=== PATIENT | male | born 1950 | race Hispanic/Latino ===

== ENCOUNTER 2024-03-02 18:03 | Inpatient (IN) | payer OTHER ==
[~2024-03-02] VITALS: Ht 165.1 cm; Wt 83.6 kg
[2024-03-02 18:50] LABS: BASOPHILS # (AUTO) 0.03 K/uL (0.00-0.20); BASOPHILS % (AUTO) 0.2 % (0.0-5.0); EOSINOPHILS # (AUTO) 0.12 K/uL (0.00-0.70); EOSINOPHILS % (AUTO) 0.8 % (0.0-8.0); HEMATOCRIT 40.3 % (42-54); IMMATURE GRANULOCYTE ABSOLUTE 0.06 K/uL (0-1); LYMPHOCYTES # (AUTO) 1.3 K/uL (1.0-4.8); MEAN CORPUSCULAR HEMOGLOBIN 28.6 pg (27.0-33.0); MEAN CORPUSCULAR HGB CONC 32.8 g/dL (32.0-36.0); MEAN CORPUSCULAR VOLUME 87.4 fL (79-99); MONOCYTES % (AUTO) 6.6 % (3.0-13.0); NEUTROPHILS # (AUTO) 13.2 K/uL (1.8-7.7); PLATELET COUNT (AUTO) 413 K/uL (130-400); RED BLOOD CELL COUNT(AUTO) 4.61 MIL/uL (4.50-6.20); RED CELL DISTRIBUTION WIDTH 12.9 % (11.0-15.5); WHITE BLOOD COUNT (AUTO) 15.7 K/uL (4.8-10.8)
[2024-03-02 18:59] LABS: APPEARANCE,URINE CLEAR (CLEAR); BILIRUBIN,URINE NEGATIVE (NEGATIVE); COLOR,URINE YELLOW (YELLOW); GLUCOSE, URINE (UA) NEGATIVE (NEGATIVE); KETONES,URINE NEGATIVE (NEGATIVE); LEUKOCYTE ESTERASE ,URINE NEGATIVE Leu/uL (NEGATIVE); NITRATE,URINE NEGATIVE (NEGATIVE); OCCULT BLOOD,URINE SMALL (NEGATIVE); PH,URINE 5.5 (5.0-8.0); PROTEIN,URINE 50 mg/dL (NEGATIVE); UROBILINOGEN,URINE 0.2 mg/dL (0.2-1.0)
[2024-03-02 19:00] LABS: CREATININE 1.5 mg/dL (0.5-1.3); POTASSIUM 4.3 mmol/L (3.5-5.1)
[2024-03-02 19:03] LABS: ADD UA MICROSCOPIC YES; BACTERIA,URINE RARE /HPF (None Seen); MUCUS,URINE RARE LPF (None Seen); RBC,URINE 0-1 /HPF (0-1)
[2024-03-02 19:21] LABS: PLATELET MORPHOLOGY PLT CLUMPS PRESENT
[2024-03-02] MEDS ORDERED: IOHEXOL-350 75 ML VIAL IV ONE (19:57)
[2024-03-02] MEDS: ondanSETRON 4MG INJ IVP STA (20:06)
[2024-03-02] MEDS: 0.9%NACL 1000ML 1,000 ML IV STA (20:06)
[2024-03-02] MEDS: morPHINE 2 MG SYG IVP STA (20:06)
[2024-03-02] MEDS: ZOSYN 3.375GM +NS 50ML IV STA (22:04)
[2024-03-02] MEDS: metRONIDazole 500MG/100ML BAG 100 ML IVPB STA (22:54)
[2024-03-02] MEDS: DEXTROSE 5 %-0.45 % NACL 1,000 ML IV SCH (22:55)
[2024-03-02] MEDS ORDERED: acetaMINOPHEN 325 MG TAB PO PRN (23:00)
[2024-03-03] VITALS (8 sets, daily range): BP systolic 117–135; BP diastolic 63–78; PULSE 68–92; RESP 18–20; TEMP 98.5–99.5; O2SAT 96–100
[2024-03-03] MEDS: hydroMORPHone 0.5 MG SYG (0.5MG/0.5ML) IVP PRN (02:38)
[2024-03-03] MEDS ORDERED: 0.9%NACL 50ML IV SCH (05:00)
[2024-03-03 05:55] LABS: BASOPHILS # (AUTO) 0.06 K/uL (0.00-0.20); BASOPHILS % (AUTO) 0.3 % (0.0-5.0); EOSINOPHILS # (AUTO) 0.14 K/uL (0.00-0.70); EOSINOPHILS % (AUTO) 0.8 % (0.0-8.0); HEMATOCRIT 34.7 % (42-54); IMMATURE GRANULOCYTE ABSOLUTE 0.13 K/uL (0-1); LYMPHOCYTES # (AUTO) 1.6 K/uL (1.0-4.8); LYMPHOCYTES % (AUTO) 8.8 % (21.0-51.0); MEAN CORPUSCULAR HEMOGLOBIN 28.1 pg (27.0-33.0); MEAN CORPUSCULAR HGB CONC 32.3 g/dL (32.0-36.0); MEAN CORPUSCULAR VOLUME 87.2 fL (79-99); MONOCYTES # (AUTO) 1.4 K/uL (0.1-1.0); MONOCYTES % (AUTO) 7.3 % (3.0-13.0); NEUTROPHILS # (AUTO) 15.1 K/uL (1.8-7.7); NEUTROPHILS % (AUTO) 82.1 % (40.0-77.0); PLATELET COUNT (AUTO) 385 K/uL (130-400); RED BLOOD CELL COUNT(AUTO) 3.98 MIL/uL (4.50-6.20); RED CELL DISTRIBUTION WIDTH 12.8 % (11.0-15.5); WHITE BLOOD COUNT (AUTO) 18.5 K/uL (4.8-10.8)
[2024-03-03 06:18] LABS: ALBUMIN 2.5 g/dL (3.5-5.0); BILIRUBIN,TOTAL 0.4 mg/dL (0.2-1.0); CREATININE 1.3 mg/dL (0.5-1.3); POTASSIUM 3.8 mmol/L (3.5-5.1); TOTAL PROTEIN, SERUM 6.8 g/dL (6.0-8.3)
[2024-03-03] MEDS: METRONIDAZOLE 250 MG/50 ML IV SCH (06:40)
[2024-03-03] MEDS: ZOSYN 3.375GM +NS 50ML IVPB SCH (06:47)
[2024-03-03] MEDS: ENOXAPARIN SODIUM 30 MG/0.3 ML SQ SCH (10:57)
[2024-03-04] VITALS (8 sets, daily range): BP systolic 114–130; BP diastolic 60–71; PULSE 70–89; RESP 18; TEMP 97.7–98.9; O2SAT 96–98
[2024-03-04 05:52] LABS: HEMATOCRIT 34.3 % (42-54); MEAN CORPUSCULAR HEMOGLOBIN 28.4 pg (27.0-33.0); MEAN CORPUSCULAR HGB CONC 32.1 g/dL (32.0-36.0); MEAN CORPUSCULAR VOLUME 88.4 fL (79-99); RED BLOOD CELL COUNT(AUTO) 3.88 MIL/uL (4.50-6.20); WHITE BLOOD COUNT (AUTO) 10.8 K/uL (4.8-10.8)
[2024-03-04 06:10] LABS: ALBUMIN 2.4 g/dL (3.5-5.0); BILIRUBIN,TOTAL 0.4 mg/dL (0.2-1.0); CREATININE 1.3 mg/dL (0.5-1.3); POTASSIUM 3.4 mmol/L (3.5-5.1); TOTAL PROTEIN, SERUM 6.8 g/dL (6.0-8.3)
[2024-03-04] MEDS ORDERED: PoTASSium chl 10% ELIXIR 20MEQ 20 MEQ/15 ML UDCUP PO PRN (16:30)
[2024-03-04] MEDS ORDERED: PoTASSium chloRIDE 20MEQ/100ML 100 ML IV PRN (16:30)
[2024-03-04] MEDS: PoTASSium chloRIDE 20MEQ ER 20 MEQ ERTAB PO PRN (17:50)
[2024-03-05] VITALS (7 sets, daily range): BP systolic 121–135; BP diastolic 71–82; PULSE 74–81; RESP 18–20; TEMP 98.2–99.1; O2SAT 98
[2024-03-05] MEDS: DIPHENOXYLATE HCL/ATROPINE 2.5/0.025 MG TAB PO SCH (13:23)
[2024-03-05] MEDS: HYDROcodone/APAP 5/325 1 TAB TABLET PO PRN (17:34)
[2024-03-06] VITALS (7 sets, daily range): BP systolic 110–130; BP diastolic 50–72; PULSE 70–89; RESP 16–18; TEMP 97.2–98.6; O2SAT 98
[2024-03-06 07:04] LABS: BASOPHILS # (AUTO) 0.04 K/uL (0.00-0.20); BASOPHILS % (AUTO) 0.4 % (0.0-5.0); EOSINOPHILS # (AUTO) 0.37 K/uL (0.00-0.70); EOSINOPHILS % (AUTO) 4.1 % (0.0-8.0); IMMATURE GRANULOCYTE ABSOLUTE 0.03 K/uL (0-1); LYMPHOCYTES # (AUTO) 1.4 K/uL (1.0-4.8); MEAN CORPUSCULAR HEMOGLOBIN 28.4 pg (27.0-33.0); MEAN CORPUSCULAR HGB CONC 32.2 g/dL (32.0-36.0); MEAN CORPUSCULAR VOLUME 88.2 fL (79-99); MONOCYTES # (AUTO) 0.6 K/uL (0.1-1.0); MONOCYTES % (AUTO) 6.8 % (3.0-13.0); NEUTROPHILS # (AUTO) 6.6 K/uL (1.8-7.7); NEUTROPHILS % (AUTO) 73.4 % (40.0-77.0); PLATELET COUNT (AUTO) 437 K/uL (130-400); RED BLOOD CELL COUNT(AUTO) 4.08 MIL/uL (4.50-6.20); RED CELL DISTRIBUTION WIDTH 12.8 % (11.0-15.5)
[2024-03-06 07:19] LABS: ALBUMIN 2.5 g/dL (3.5-5.0); BILIRUBIN,TOTAL 0.2 mg/dL (0.2-1.0); CREATININE 1.2 mg/dL (0.5-1.3); POTASSIUM 3.6 mmol/L (3.5-5.1); TOTAL PROTEIN, SERUM 7.2 g/dL (6.0-8.3)
[2024-03-06] MEDS: LACTATED RINGERS 1000ML IV SCH (07:54)
[2024-03-07] VITALS (7 sets, daily range): BP systolic 119–147; BP diastolic 68–87; PULSE 63–84; RESP 17–20; TEMP 97.6–98.8; O2SAT 99
[2024-03-07] MEDS: AMOX/CLAV 875/125MG TAB PO SCH (09:31)
[2024-03-08] VITALS: BP 135/76; PULSE 64; RESP 17; TEMP 98.8
[2024-03-08 04:00] VITALS: BP 133/77; PULSE 77; RESP 17; TEMP 98.5
[2024-03-08 06:09] LABS: BASOPHILS # (AUTO) 0.04 K/uL (0.00-0.20); BASOPHILS % (AUTO) 0.3 % (0.0-5.0); EOSINOPHILS # (AUTO) 0.37 K/uL (0.00-0.70); HEMATOCRIT 33.2 % (42-54); IMMATURE GRANULOCYTE ABSOLUTE 0.06 K/uL (0-1); LYMPHOCYTES # (AUTO) 1.7 K/uL (1.0-4.8); LYMPHOCYTES % (AUTO) 13.5 % (21.0-51.0); MEAN CORPUSCULAR HEMOGLOBIN 27.7 pg (27.0-33.0); MEAN CORPUSCULAR HGB CONC 31.9 g/dL (32.0-36.0); MEAN CORPUSCULAR VOLUME 86.7 fL (79-99); MONOCYTES % (AUTO) 8.2 % (3.0-13.0); NEUTROPHILS # (AUTO) 9.3 K/uL (1.8-7.7); NEUTROPHILS % (AUTO) 74.5 % (40.0-77.0); PLATELET COUNT (AUTO) 389 K/uL (130-400); RED BLOOD CELL COUNT(AUTO) 3.83 MIL/uL (4.50-6.20); RED CELL DISTRIBUTION WIDTH 12.8 % (11.0-15.5); WHITE BLOOD COUNT (AUTO) 12.5 K/uL (4.8-10.8)
[2024-03-08 06:27] LABS: ALBUMIN 2.4 g/dL (3.5-5.0); BILIRUBIN,TOTAL 0.1 mg/dL (0.2-1.0); CREATININE 1.1 mg/dL (0.5-1.3); POTASSIUM 3.7 mmol/L (3.5-5.1); TOTAL PROTEIN, SERUM 6.5 g/dL (6.0-8.3)
[2024-03-08 07:57] VITALS: BP 141/69; PULSE 76; RESP 18; TEMP 98.1
[2024-03-08 08:00] VITALS: O2SAT 99
[2024-03-08 11:24] VITALS: BP 122/63; PULSE 68; RESP 18; TEMP 98.3
[2024-03-08 16:05] VITALS: BP 155/59; PULSE 79; RESP 18; TEMP 98.1
== END 2024-03-08 17:00 | disposition home or self-care (01) | DRG 871 ==
LOC: EDH 18:03 → EDHIP 22:34 → 3AH 03-03 02:15
PROVIDERS: ADMIT Internal Medicine; ATTEND Internal Medicine
DX: A41.9 Sepsis, unspecified organism (principal); K65.1 Peritoneal abscess; N17.9 Acute kidney failure, unspecified; E87.1 Hypo-osmolality and hyponatremia; E86.0 Dehydration; E87.6 Hypokalemia; D64.9 Anemia, unspecified; I10 Essential (primary) hypertension; F32.A Depression, unspecified; F41.9 Anxiety disorder, unspecified; K76.0 Fatty (change of) liver, not elsewhere classified; Z90.49 Acquired absence of other specified parts of digestive tract; Z93.2 Ileostomy status; Z93.3 Colostomy status
CPT/HCPCS: 36415; 74176; 74177; 80048; 80053; 81001; 83605; 84132; 84145; 85025; 85027; 96374; 96375; G0378; J1170; J1650; J2270; J2405; J2543; J3490; J7030; J7042; Q9967

== ENCOUNTER 2024-05-12 11:00 | Inpatient (IN) | payer OTHER ==
[~2024-05-12] VITALS: Ht 165.1 cm; Wt 85.1 kg
[2024-05-12 10:57] LABS: BASOPHILS # (AUTO) 0.03 K/uL (0.00-0.20); BASOPHILS % (AUTO) 0.3 % (0.0-5.0); EOSINOPHILS # (AUTO) 0.26 K/uL (0.00-0.70); EOSINOPHILS % (AUTO) 2.4 % (0.0-8.0); HEMATOCRIT 42.4 % (42-54); IMMATURE GRANULOCYTE ABSOLUTE 0.04 K/uL (0-1); LYMPHOCYTES # (AUTO) 1.7 K/uL (1.0-4.8); LYMPHOCYTES % (AUTO) 16.2 % (21.0-51.0); MEAN CORPUSCULAR HEMOGLOBIN 27.8 pg (27.0-33.0); MEAN CORPUSCULAR VOLUME 84.1 fL (79-99); MONOCYTES # (AUTO) 0.8 K/uL (0.1-1.0); MONOCYTES % (AUTO) 7.1 % (3.0-13.0); NEUTROPHILS # (AUTO) 7.8 K/uL (1.8-7.7); NEUTROPHILS % (AUTO) 73.6 % (40.0-77.0); PLATELET COUNT (AUTO) 327 K/uL (130-400); RED BLOOD CELL COUNT(AUTO) 5.04 MIL/uL (4.50-6.20); RED CELL DISTRIBUTION WIDTH 13.7 % (11.0-15.5); WHITE BLOOD COUNT (AUTO) 10.7 K/uL (4.8-10.8)
[2024-05-12 11:12] VITALS: BP 147/78; PULSE 80; RESP 18; TEMP 97.5
[2024-05-12 11:22] LABS: ALBUMIN 3.4 g/dL (3.5-5.0); BILIRUBIN,TOTAL 0.5 mg/dL (0.2-1.0); CREATININE 1.4 mg/dL (0.5-1.3); POTASSIUM 4.4 mmol/L (3.5-5.1); TOTAL PROTEIN, SERUM 7.7 g/dL (6.0-8.3)
[2024-05-12 11:42] LABS: INR 1.04 (0.85-1.15); PROTHROMBIN TIME 11.2 SEC (9.6-11.6)
[2024-05-12 11:43] LABS: PARTIAL THROMBOPLASTIN TIME 27.8 SEC (26.3-35.5)
[2024-05-12] MEDS ORDERED: TOBR5DRO44 OP (11:55)
[2024-05-12] MEDS ORDERED: CYCL30DR OP (11:55)
[2024-05-12] MEDS ORDERED: LOPE2CAP PO (11:55)
[2024-05-12] MEDS ORDERED: HYDR-3421 PO (11:55)
--- NOTE | 2024-05-12 21:43 | EKG ---
[facility] Test Date: 2024-05-12 Test Time: 11:36:19 Pat Name: RADHA CALDWELL Department: Patient ID: 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
[2024-05-16] VITALS (29 sets, daily range): BP systolic 129–168; BP diastolic 72–86; PULSE 58–89; RESP 15–20; TEMP 96.3–98; O2SAT 98
[2024-05-16] MEDS: MEROPENEM 1 GM VIAL ONE (06:26)
[2024-05-16] MEDS: LACTATED RINGERS 1000ML 1,000 ML IV ONE (06:26)
[2024-05-16] MEDS ORDERED: GLYCOPYRROLATE 0.2 MG/ML 5 ML VIAL ONE (07:02)
[2024-05-16] MEDS ORDERED: SUCCINYLCHOLINE CHLORIDE 20 MG/ML 10 ML VIAL ONE (07:02)
[2024-05-16] MEDS ORDERED: ondanSETRON 4MG INJ ONE (07:02)
[2024-05-16] MEDS ORDERED: proPOFol 10 MG/ML 20ML VIAL IV ONE (07:02)
[2024-05-16] MEDS ORDERED: rocuRONium bROMide 10MG/1ML 5ML VL ONE ×2 (07:02→09:20)
[2024-05-16] MEDS ORDERED: MIDAZOLAM HCL 1 MG/ML 2ML VIAL ONE (07:02)
[2024-05-16] MEDS ORDERED: NEOSTIGMINE METHYLSULFATE 1MG/ML IV ONE (07:02)
[2024-05-16] MEDS ORDERED: FENTanyl CITRate PF 50 MCG/1 ML 2ML VIAL ONE ×2 (07:03→08:52)
[2024-05-16] MEDS ORDERED: LIDOCAINE PF 100MG/5ML (2%) SYRINGE 5ML ONE (07:03)
[2024-05-16] MEDS: acetaMINOPHEN 100 ML ONE (07:29)
[2024-05-16] MEDS ORDERED: phenylEPHRINE HCL 10 MG/ML 1ML VIAL IV ONE ×2 (07:32→07:35)
[2024-05-16] MEDS ORDERED: dexaMETHasone SOD PHOSPHATE 10MG/ML 1ML VIAL ONE (08:10)
[2024-05-16] MEDS: EPINEPHrine PF 1MG (1:1,000) 1 MG/ML AMP ONE (08:21)
[2024-05-16] MEDS: LIDOCAINE HCL 1% 10 ML VIAL ONE (08:21)
[2024-05-16] MEDS: LIDOCAINE HCL 1% 20 ML VIAL ONE (08:21)
[2024-05-16] MEDS: BUPIvacaine/PF 0.5% 30ML VIAL ONE (08:21)
[2024-05-16] MEDS: acetaMINOPHEN 325 MG TAB PO SCH (11:00)
[2024-05-16] MEDS ORDERED: INSULIN humuLIN R 100 UNIT/ML 3ML SQ PRN (11:00)
[2024-05-16] MEDS: MEPERIDINE-PF 25 MG/ML SYG ONE ×2 (11:09→11:44)
[2024-05-16] MEDS: FENTanyl CITRate PF 50 MCG/1 ML 2ML VIAL ONE (11:15)
[2024-05-16] MEDS: GABApentin 100 MG CAPSULE PO SCH (14:00)
--- NOTE | 2024-05-16 14:40 | OP ---
Operative Note: DATE OF PROCEDURE: 05/16/24 SURGEON: ML LEE MD EXPLORATION ENGINEER: None ANESTHESIA: General ANESTHESIOLOGIST/CUSTOMS VERIFIER: CUSTOMS VERIFIER PREOPERATIVE DIAGNOSIS: Ileostomy status POSTOPERATIVE DIAGNOSIS: Same PROCEDURE: Open Ileostomy closure with small bowel resection Extensive lysis of adhesions lasting greater than 1 hour, extended procedural service, not typical for this type of case ESTIMATED BLOOD LOSS: Minimal INDICATIONS: Mr. Holden is a very pleasant 74 year old male with a complicated surgical history with multiple prior open surgeries with subsequent need for Redo low anterior resection and now presents for ileostomy closure. complications, alternatives, risk and benefits include but not limited to infection, bleeding, injury to surrounding structures such as bowel, blood vessels, nerves and other organs, anastomotic leak, sepsis, recurrence of disease and the need for additional procedures. He voiced understanding and wished to proceed. All of his questions were answered to his satisfaction. DESCRIPTION OF PROCEDURE: After informed consent was obtained, the patient was taken to the operating room and laid in the supine position. Once GETA was achieved, the abdomen was prepped and draped in the usual sterile fashion. A time out was performed to confirm correct patient and procedure. Next local anesthetic was injected into the peristomal skin. Next the ileostomy site was incised leaving a small rim of skin. Dissection was carried down to release the small bowel from the surrounding tissue and fascia. We then took great care to separate the small bowel from the surrounding fascia however there was severe intra-abdominal adhesions along this entire midline down into the pelvis. We extended the circular incision for better visualization however there was severe intr- abdominal adhesions without normal planes. The omentum was firmly adherent to the abdominal wall and extremely friable and bled easily. There were several loops of small bowel in the midline and extending down into the pelvis, this is was inhibited the distal bowel from reaching above skin level. We placed a wound protector into the circular incision and gained pneumoperitoneum. A laparoscopic camera was placed into the abdomen and inspected. There were severe adhesions in the entire abdomen down into the pelvis. Given the severity it was difficult to determine adhesions from small bowel and thus it was decided to make a midline incision to complete the surgery. A midline incision was made and the abdomen was entered carefully. We then spent over an hour taking down adhesions in order to restore and identify anatomy. Once the distal small bowel was identified and carefully freed we then proceeded with the small bowel resection.We chose two healthy segments of small bowel and performed a small bowel resection of the small bowel between these points. The mesentery was clamped and tied for hemostasis. Next using a blue load FATMATA stapler the proximal and distal small bowel were transected and the small bowel sent as specimen. Next, an allis clamp was placed onto the edge of the staple line, this was cut off and the stapler placed into the small bowel. A performed a side to side stapled small bowel anastomosis in the standard fashion. Prior to closing the common enterotomy hemostasis of the interior staple line was checked for and obtained. Next allis clamps were placed onto the common enterotomy which was closed with a TA 60 stapler. Next the staple line was oversewn. A crotch stitch was placed. Hemostasis was checked for and obtained. Next the small bowel was placed back into the abdomen. We checked the surrounding small bowel and there were no injuries identified. We then closed the fascia of the midline incision and ileostomy sire with 1-0 PDS sutures. The wound was irrigated with betadine solution. hemostasis of the subcutaneous tissue was obtained. The midline incision was closed with monocryl sutures and dermabond placed as a sterile dressing. Next the takedown site was closed using 2-0 Monocryl in a pursestring manner. Iodoform packing was placed into the wound and a sterile gauze dressing was placed. The patient tolerated the procedure well and was taken to the recovery room in stable condition. I discussed the above in detail with the patients family member at completion of the case. Complications: none Blood loss: minimal Counts reported as correct x2 by nursing staff. ML LEE MD May 16, 2024 14:40
[2024-05-16] MEDS: LACTATED RINGERS 1000ML 1,000 ML IV SCH (17:11)
[2024-05-16] MEDS: hydroMORPHone 0.5 MG SYG (0.5MG/0.5ML) IVP PRN (17:16)
--- NOTE | 2024-05-16 21:32 | NUR ---
Pain Patient verbalized pain score of 7/10 to abdomen. Dilaudid 0.5mg give IV push at this time. Advised primary nurse Phyllis HURST to follow up on pain assessment. Verbalized understanding.
[2024-05-17] VITALS (8 sets, daily range): BP systolic 130–152; BP diastolic 72–88; PULSE 62–81; RESP 18–19; TEMP 97.9–98.7; O2SAT 96–98
[2024-05-17] MEDS: OXYcodONE HCL 5 MG TAB PO PRN (01:44)
[2024-05-17 04:50] LABS: BASOPHILS # (AUTO) 0.02 K/uL (0.00-0.20); BASOPHILS % (AUTO) 0.1 % (0.0-5.0); HEMATOCRIT 35.6 % (42-54); IMMATURE GRANULOCYTE ABSOLUTE 0.07 K/uL (0-1); LYMPHOCYTES # (AUTO) 1.4 K/uL (1.0-4.8); LYMPHOCYTES % (AUTO) 8.8 % (21.0-51.0); MEAN CORPUSCULAR HEMOGLOBIN 27.3 pg (27.0-33.0); MEAN CORPUSCULAR HGB CONC 32.6 g/dL (32.0-36.0); MEAN CORPUSCULAR VOLUME 83.8 fL (79-99); MONOCYTES # (AUTO) 1.3 K/uL (0.1-1.0); MONOCYTES % (AUTO) 8.2 % (3.0-13.0); NEUTROPHILS # (AUTO) 12.8 K/uL (1.8-7.7); NEUTROPHILS % (AUTO) 82.4 % (40.0-77.0); PLATELET COUNT (AUTO) 294 K/uL (130-400); RED BLOOD CELL COUNT(AUTO) 4.25 MIL/uL (4.50-6.20); RED CELL DISTRIBUTION WIDTH 13.6 % (11.0-15.5); WHITE BLOOD COUNT (AUTO) 15.5 K/uL (4.8-10.8)
[2024-05-17 05:11] LABS: CREATININE 1.1 mg/dL (0.5-1.3); POTASSIUM 4.5 mmol/L (3.5-5.1)
--- NOTE | 2024-05-17 08:11 | PN ---
COLORECTAL PROGRESS NOTE Date of Visit: May 17, 2024 Time of Visit: 08:06 Events / Notes: [74 YO male with ileostomy status who underwent an open ileostomy closure with small bowel resection and extensive lysis of adhesions. He reports feeling well this am. He has tolerated clear liquids with no n/v. BBS are clear. Abd is soft and not distended with active BS. Midline incision d/i peeled potato inspector with dermabond. Sanford cath draining clear yellow urine. He has ambulated without difficulties. Plan to remove sanford cath and advance diet. Encouraged ambulation and I/S exercises. He agrees. ] Review of Systems: CONSTITUTIONAL: No malaise or change in sensation of wellbeing. ENMT: No rhinorrhea, otorrhea, sinus pain, ear ache. CARDIOVASCULAR: No angina, palpitations, orthopnea or paroxysmal dyspnea. RESPIRATORY: No SOB. GASTROINTESTINAL: No abdominal pain, nausea, vomiting, diarrhea, hematemesis, melena or change in the patient's habitual bowel movements consistency/number. GENITOURINARY: No dysuria, hematuria or change in bladder continence. MUSCULOSKELETAL: No new muscle pain or decrease in muscular strength. No new joint swelling, redness or tenderness. SKIN: No new rash. Physical Exam: GEN: Awake, alert, oriented in person, time and place, and in no acute distress. HEENT: No rhinorrhea. Oral pharyngeal mucosa is pink, moist and within normal limits. Neck is supple CHEST: Inspection, palpation of the chest were unremarkable. Lung auscultation revealed normal breath sounds bilaterally. CARDIAC: Heart sounds are regular. ABD: Soft, non-tender and not distended. Midline incision D&I peeled potato inspector with dermab ond. Stoma site incision dressing dry. No peritoneal signs on palpation. No organomegaly. Normal bowel sounds. EXT: No cyanosis or clubbing. No edema. Homans negative SKIN: Intact. No rashes. JOINTS: No evidence of synovitis or acute arthritis. NEURO: Alert and oriented to name, place and person. No focal motor deficits. Normal speech. Gait not assessed. Strength is normal. Vital Signs (last 8hr) Date Time Temp Pulse Resp B/P (MAP) Pulse Ox O2 Delivery O2 Flow Rate FiO2 05/17/24 04:13 98.2 81 18 142/80 98 Room Air 05/17/24 00:15 98.1 79 18 139/88 97 Room Air Laboratory: [ ] Laboratory: Test 05/17/24 04:20 Range/Units White Blood Count 15.5 H 4.8-10.8 K/uL Red Blood Count 4.25 L 4.50-6.20 MIL/uL Hemoglobin 11.6 L 14.0-18.0 g/dL Hematocrit 35.6 L 42-54 % Mean Corpuscular Volume 83.8 79-99 fL Mean Corpuscular Hemoglobin 27.3 27.0-33.0 pg Mean Corpuscular Hemoglobin Concent 32.6 32.0-36.0 g/dL Red Cell Distribution Width 13.6 11.0-15.5 % Platelet Count 294 130-400 K/uL Mean Platelet Volume 9.1 7.5-10.5 fL Immature Granulocyte % (Auto) 0.5 0-1 % Neutrophils (%) (Auto) 82.4 H 40.0-77.0 % Lymphocytes (%) (Auto) 8.8 L 21.0-51.0 % Monocytes (%) (Auto) 8.2 3.0-13.0 % Eosinophils (%) (Auto) 0.0 0.0-8.0 % Basophils (%) (Auto) 0.1 0.0-5.0 % Neutrophils # (Auto) 12.8 H 1.8-7.7 K/uL Lymphocytes # (Auto) 1.4 1.0-4.8 K/uL Monocytes # (Auto) 1.3 H 0.1-1.0 K/uL Eosinophils # (Auto) 0.00 0.00-0.70 K/uL Basophils # (Auto) 0.02 0.00-0.20 K/uL Absolute Immature Granulocyte (auto 0.07 0-1 K/uL Nucleated Red Blood Cells 0.0 0.0-0.19 % White Cell Morphology Comment See comments Sodium Level 137 136-145 mmol/L Potassium Level 4.5 3.5-5.1 mmol/L Chloride Level 105 101-111 mmol/L Carbon Dioxide Level 25 21-32 mmol/L Blood Urea Nitrogen 13 7-18 mg/dL Creatinine 1.1 0.5-1.3 mg/dL Glomerular Filtration Rate Calc 70 >90 mL/min Random Glucose 113 H 70-105 mg/dL Total Calcium 8.6 8.5-10.1 mg/dL Current Medications Medications (Trade) Dose Ordered Sig/Harsh Route PRN Reason Start Time Stop Time Status Last Admin Dose Admin Acetaminophen (TYLenol 325MG TAB) 650 mg Q6H PO 05/16/24 11:00 06/15/24 10:59 05/17/24 00:23 650 MG Enoxaparin Sodium (Lovenox) 40 mg DAILY SQ 05/17/24 09:00 06/16/24 08:59 Gabapentin (NEURontin 100 mg CAP) 100 mg TID PO 05/16/24 14:00 06/15/24 13:59 05/16/24 21:09 100 MG Hydromorphone HCl (DiLAUDid 0.5MG INJ) 0.5 mg Q4H PRN IVP SEVERE PAIN (7-10) 05/16/24 11:00 05/21/24 10:59 05/17/24 05:36 0.5 MG Insulin Human Regular (humuLIN R 100 UNIT/ML 3ML) AD PRN SQ SLIDING SCALE COVERAGE 05/16/24 11:00 06/15/24 10:59 Lactated Ringer's 1,000 ml @ 50 mls/hr Q20H IV 05/16/24 11:00 06/15/24 10:59 05/16/24 17:11 50 MLS/HR Ondansetron HCl (zoFRAN 4MG INJ) 4 mg Q4H PRN IVP NAUSEA 05/16/24 11:00 06/15/24 10:59 Oxycodone HCl (ROXicoDONE) 5 mg Q4H PRN PO MODERATE PAIN (4-6) 05/16/24 11:00 05/23/24 10:59 05/17/24 01:44 5 MG Assessment: [Ileostomy status ] Plan: [Regular diet Discontinue sanford cath this am. Encourage ambulation Encourage I/S exercises Pain meds as needed Antiemetics prn Please call with questions, concerns, and change in clinical status Plan for disposition in the next 24-48 hours. Appreciate hospitalist's assistance in our patient care. ] RACHELE CAMPOS NP May 17, 2024 08:11
[2024-05-17] MEDS: ENOXAPARIN SODIUM 40 MG/0.4 ML SYRINGE SQ SCH (10:30)
--- NOTE | 2024-05-17 16:41 | NUR ---
DCP CM SPOKE TO PT INITIAL ASSESSMENT DONE. PATIENT IS INDEPENDENT PRIOR TO ADMISSION, LIVES AT HOME WITH SPOUSE. DENIES ANY EQUIPMENT/SERVICES. FEELS SAFE TO GO [facility], FAMILY ABLE TO ASSIST WITH TRANSPORTATION AND NEEDS NECESSARY. DCP HOME ONCE STABLE. CM TO CONTINUE TO FOLLOW UP. Addendum: 05/17/24 at 1642 by AUGUSTIN JACKSON LVN CM Amended: Links added.
[2024-05-17] MEDS: ondanSETRON 4MG INJ IVP PRN (20:18)
--- NOTE | 2024-05-17 21:46 | PN ---
SUBJECTIVE: The patient is admitted by Surgery for reversal of ileostomy. OBJECTIVE: GENERAL: He is currently comfortable in bed, not in distress. VITAL SIGNS: Blood pressure 130/73, pulse 63, respiratory rate 18. HEENT: Normocephalic, atraumatic. LUNGS: Clear to auscultation. ABDOMEN: Bowel sounds are present. EXTREMITIES: No clubbing or cyanosis. LABORATORY DATA: WBC count 15.5, hemoglobin 11.6, platelets 294. Sodium 137, potassium 4.5, BUN 13, creatinine 1.1. ASSESSMENT AND PLAN: * Status post reversal of ileostomy. Continue recommendations by Surgery. * Leukocytosis. Continue to monitor. * Anemia, postoperative, minimal. Continue to monitor. * Follow up in a.m. with results. DOS:05/17/2024 TID: [id number] RECEIPT: [id number] MTDD
[2024-05-18 04:00] VITALS: BP 140/87; PULSE 82; RESP 18; TEMP 98
[2024-05-18 05:13] LABS: BASOPHILS # (AUTO) 0.04 K/uL (0.00-0.20); BASOPHILS % (AUTO) 0.4 % (0.0-5.0); EOSINOPHILS % (AUTO) 0.9 % (0.0-8.0); HEMATOCRIT 34.6 % (42-54); IMMATURE GRANULOCYTE ABSOLUTE 0.03 K/uL (0-1); LYMPHOCYTES # (AUTO) 1.5 K/uL (1.0-4.8); MEAN CORPUSCULAR HEMOGLOBIN 27.4 pg (27.0-33.0); MEAN CORPUSCULAR HGB CONC 32.4 g/dL (32.0-36.0); MEAN CORPUSCULAR VOLUME 84.6 fL (79-99); MONOCYTES # (AUTO) 1.1 K/uL (0.1-1.0); MONOCYTES % (AUTO) 10.3 % (3.0-13.0); NEUTROPHILS % (AUTO) 74.1 % (40.0-77.0); PLATELET COUNT (AUTO) 263 K/uL (130-400); RED BLOOD CELL COUNT(AUTO) 4.09 MIL/uL (4.50-6.20); RED CELL DISTRIBUTION WIDTH 13.6 % (11.0-15.5); WHITE BLOOD COUNT (AUTO) 10.8 K/uL (4.8-10.8)
[2024-05-18 05:48] LABS: CREATININE 1.1 mg/dL (0.5-1.3); POTASSIUM 3.5 mmol/L (3.5-5.1)
[2024-05-18 07:37] VITALS: BP 139/76; PULSE 74; RESP 18; TEMP 98.3
--- NOTE | 2024-05-18 09:02 | PN ---
COLORECTAL PROGRESS NOTE Date of Visit: May 18, 2024 Time of Visit: 09:02 Events / Notes: [74 YO male with ileostomy status who underwent an open ileostomy closure with small bowel resection and extensive lysis of adhesions. He reports feeling well this am. He has tolerated clear liquids with no n/v. BBS are clear. Abd is soft and not distended with active BS. Midline incision d/i rotational moulding operator with dermabond. Sanford cath draining clear yellow urine. He has ambulated without difficulties. Plan to remove sanford cath and advance diet. Encouraged ambulation and I/S exercises. He agrees. 05/18/24. NO acute events overnight. Patient has tolerated regular diet well. His VSS. BBS are clear. Abdomen is soft and not distended. Incision D&I. 2 inches of wick packing removed. Dressing reapplied. He is voiding well and ambulating with steady gait. He has not passed any flatus or had bm. Plan for discharge this afternoon if he is able to pass flatus or bm. Home care instructions with ER warnings given to patient and spouse. They verbalized understanding and agreement. ] Review of Systems: CONSTITUTIONAL: No malaise or change in sensation of wellbeing. ENMT: No rhinorrhea, otorrhea, sinus pain, ear ache. CARDIOVASCULAR: No angina, palpitations, orthopnea or paroxysmal dyspnea. RESPIRATORY: No SOB. GASTROINTESTINAL: No abdominal pain, nausea, vomiting, diarrhea, hematemesis, melena or change in the patient's habitual bowel movements consistency/number. GENITOURINARY: No dysuria, hematuria or change in bladder continence. MUSCULOSKELETAL: No new muscle pain or decrease in muscular strength. No new joint swelling, redness or tenderness. SKIN: No new rash. Physical Exam: GEN: Awake, alert, oriented in person, time and place, and in no acute distress. HEENT: No rhinorrhea. Oral pharyngeal mucosa is pink, moist and within normal limits. Neck is supple CHEST: Inspection, palpation of the chest were unremarkable. Lung auscultation revealed normal breath sounds bilaterally. CARDIAC: Heart sounds are regular. ABD: Soft, non-tender and not distended. Midline incision D&I rotational moulding operator with dermabond. Stoma site incision dressing dry. 2 in of wick packing pulled from incision. Dressing reapplied. No peritoneal signs on palpation. No organomegaly. Normal bowel sounds. EXT: No cyanosis or clubbing. No edema. Homans negative SKIN: Intact. No rashes. JOINTS: No evidence of synovitis or acute arthritis. NEURO: Alert and oriented to name, place and person. No focal motor deficits. Normal speech. Ambulating well with steady gait. Strength is normal. Vital Signs (last 8hr) Date Time Temp Pulse Resp B/P (MAP) Pulse Ox O2 Delivery O2 Flow Rate FiO2 05/18/24 07:37 98.2 74 18 139/76 95 Room Air 21 05/18/24 04:00 98.1 82 18 140/87 96 Room Air 21 Laboratory: [ ] Laboratory: Test 05/18/24 04:43 05/17/24 04:20 Range/Units White Blood Count 10.8 4.8-10.8 K/uL Red Blood Count 4.09 L 4.50-6.20 MIL/uL Hemoglobin 11.2 L 14.0-18.0 g/dL Hematocrit 34.6 L 42-54 % Mean Corpuscular Volume 84.6 79-99 fL Mean Corpuscular Hemoglobin 27.4 27.0-33.0 pg Mean Corpuscular Hemoglobin Concent 32.4 32.0-36.0 g/dL Red Cell Distribution Width 13.6 11.0-15.5 % Platelet Count 263 130-400 K/uL Mean Platelet Volume 9.0 7.5-10.5 fL Immature Granulocyte % (Auto) 0.3 0-1 % Neutrophils (%) (Auto) 74.1 40.0-77.0 % Lymphocytes (%) (Auto) 14.0 L 21.0-51.0 % Monocytes (%) (Auto) 10.3 3.0-13.0 % Eosinophils (%) (Auto) 0.9 0.0-8.0 % Basophils (%) (Auto) 0.4 0.0-5.0 % Neutrophils # (Auto) 8.0 H 1.8-7.7 K/uL Lymphocytes # (Auto) 1.5 1.0-4.8 K/uL Monocytes # (Auto) 1.1 H 0.1-1.0 K/uL Eosinophils # (Auto) 0.10 0.00-0.70 K/uL Basophils # (Auto) 0.04 0.00-0.20 K/uL Absolute Immature Granulocyte (auto 0.03 0-1 K/uL Nucleated Red Blood Cells 0.0 0.0-0.19 % Sodium Level 139 136-145 mmol/L Potassium Level 3.5 3.5-5.1 mmol/L Chloride Level 104 101-111 mmol/L Carbon Dioxide Level 29 21-32 mmol/L Blood Urea Nitrogen 10 7-18 mg/dL Creatinine 1.1 0.5-1.3 mg/dL Glomerular Filtration Rate Calc 70 >90 mL/min Random Glucose 91 70-105 mg/dL Total Calcium 8.4 L 8.5-10.1 mg/dL White Cell Morphology Comment See comments Current Medications Medications (Trade) Dose Ordered Sig/Harsh Route PRN Reason Start Time Stop Time Status Last Admin Dose Admin Acetaminophen (TYLenol 325MG TAB) 650 mg Q6H PO 05/16/24 11:00 06/15/24 10:59 05/18/24 05:32 650 MG Enoxaparin Sodium (Lovenox) 40 mg DAILY SQ 05/17/24 09:00 06/16/24 08:59 05/17/24 10:30 40 MG Gabapentin (NEURontin 100 mg CAP) 100 mg TID PO 05/16/24 14:00 06/15/24 13:59 05/17/24 20:19 100 MG Hydromorphone HCl (DiLAUDid 0.5MG INJ) 0.5 mg Q4H PRN IVP SEVERE PAIN (7-10) 05/16/24 11:00 05/21/24 10:59 05/18/24 05:42 0.5 MG Insulin Human Regular (humuLIN R 100 UNIT/ML 3ML) AD PRN SQ SLIDING SCALE COVERAGE 05/16/24 11:00 06/15/24 10:59 Lactated Ringer's 1,000 ml @ 50 mls/hr Q20H IV 05/16/24 11:00 06/15/24 10:59 05/16/24 17:11 50 MLS/HR Ondansetron HCl (zoFRAN 4MG INJ) 4 mg Q4H PRN IVP NAUSEA 05/16/24 11:00 06/15/24 10:59 05/18/24 05:42 4 MG Oxycodone HCl (ROXicoDONE) 5 mg Q4H PRN PO MODERATE PAIN (4-6) 05/16/24 11:00 05/23/24 10:59 05/17/24 01:44 5 MG Assessment: [Ileostomy status ] Plan: [Regular diet Encourage ambulation Encourage I/S exercises Pain meds as needed Antiemetics prn Please call with questions, concerns, and change in clinical status Plan for disposition in the next 24 Home care instructions with ER warnings given. Appreciate hospitalist's assistance in our patient care. ] RACHELE CAMPOS NP May 18, 2024 09:02
[2024-05-18] MEDS: PoTASSium chloRIDE 20MEQ ER 20 MEQ ERTAB PO ONE (09:05)
[2024-05-18 11:10] VITALS: O2SAT 96
[2024-05-18 11:57] VITALS: BP 138/76; PULSE 73; RESP 18; TEMP 97.9
--- NOTE | 2024-05-18 15:40 | NUR ---
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
[2024-05-18 16:00] VITALS: BP 158/79; PULSE 83; RESP 18; TEMP 98
--- NOTE | 2024-05-18 17:47 | DS ---
Discharge Summary Hospital Course He has tolerated regular diet with no n/v. He is ambulating, passing flatus and had bm. Plan for discharge today. Home care instructions given during morning visit. He is to f/u on 05/31/24 at 9:15 am at [facility] office. RACHELE CAMPOS NP May 18, 2024 17:47
--- NOTE | 2024-05-19 04:20 | PN ---
SUBJECTIVE: The patient is comfortable, afebrile. No chest pain or palpitations. No nausea or vomiting. Ambulatory. OBJECTIVE: GENERAL: He is currently, awake, alert, oriented in person, time, and place, not in distress. VITAL SIGNS: In the chart. HEENT: Normocephalic, atraumatic. LUNGS: Clear to auscultation. HEART: S1, S2 are distant. ABDOMEN: Soft, nontender. EXTREMITIES: No clubbing, cyanosis, no edema. LABORATORY DATA: Reviewed. WBC count down to 10,000, hemoglobin 11.2, platelets 263. Sodium 139, potassium 3.5, BUN 10, creatinine 1.1. ASSESSMENT AND PLAN: * Status post ileostomy closure. Continue with deep venous thrombosis prophylaxis, gastrointestinal prophylaxis, pulmonary prophylaxis. * Anemia, postoperative minimal. Continue to monitor. * Plan to discharge when cleared by Surgery. * Follow up in my office within the next 24-48 hours. DOS: 05/18/2024 TID: [id number] RECEIPT: [id number] MTDD
--- NOTE | 2024-05-19 18:21 | DS ---
HOSPITAL DISCHARGE SUMMARY Patient Name: Ayan Holden Admission Date: May 16, 2024 at 05:56 Discharge Date: May 18, 2024 Primary Care Physician: Amy Kim MD Attending Physician: Eduardo Alaniz MD Consulting Physician(s): Amy Kim MD; HISTORY OF PRESENT ILLNESS: [Patient was admitted by surgery for closure of Ileostomy with small bowel resection,pt has h/o of High volume output ileostomy, with multiple admissions for treatment of dehydration,hypovolemic shock, prem. Patientwas examined labs reviewed, schedule for open Ileostomy closure. patient tolerated procedure without major complications, d/c home comfortable afebrile Cyclosporine (Restasis), 1 DROP OP BID, (Reported) Hydroxyzine HCl (Hydroxyzine HCl), 1 TAB PO BID, (Reported) Tobramycin/Dexamethasone (Tobramycin-Dexameth Ophth Susp), 1 DROP OP BID, (Reported) Discontinued Medications Loperamide HCl (Loperamide), 2 CAP PO TID, (Reported) LABS: Laboratory Tests Test 05/18/24 04:43 White Blood Count 10.8 K/uL (4.8-10.8) Red Blood Count 4.09 MIL/uL (4.50-6.20) L Hemoglobin 11.2 g/dL (14.0-18.0) L Hematocrit 34.6 % (42-54) L Mean Corpuscular Volume 84.6 fL (79-99) Mean Corpuscular Hemoglobin 27.4 pg (27.0-33.0) Mean Corpuscular Hemoglobin Concent 32.4 g/dL (32.0-36.0) Red Cell Distribution Width 13.6 % (11.0-15.5) Platelet Count 263 K/uL (130-400) Mean Platelet Volume 9.0 fL (7.5-10.5) Immature Granulocyte % (Auto) 0.3 % (0-1) Neutrophils (%) (Auto) 74.1 % (40.0-77.0) Lymphocytes (%) (Auto) 14.0 % (21.0-51.0) L Monocytes (%) (Auto) 10.3 % (3.0-13.0) Eosinophils (%) (Auto) 0.9 % (0.0-8.0) Basophils (%) (Auto) 0.4 % (0.0-5.0) Neutrophils # (Auto) 8.0 K/uL (1.8-7.7) H Lymphocytes # (Auto) 1.5 K/uL (1.0-4.8) Monocytes # (Auto) 1.1 K/uL (0.1-1.0) H Eosinophils # (Auto) 0.10 K/uL (0.00-0.70) Basophils # (Auto) 0.04 K/uL (0.00-0.20) Absolute Immature Granulocyte (auto 0.03 K/uL (0-1) Nucleated Red Blood Cells 0.0 % (0.0-0.19) Sodium Level 139 mmol/L (136-145) Potassium Level 3.5 mmol/L (3.5-5.1) Chloride Level 104 mmol/L (101-111) Carbon Dioxide Level 29 mmol/L (21-32) Blood Urea Nitrogen 10 mg/dL (7-18) Creatinine 1.1 mg/dL (0.5-1.3) Glomerular Filtration Rate Calc 70 mL/min (>90) Random Glucose 91 mg/dL (70-105) Total Calcium 8.4 mg/dL (8.5-10.1) L PROCEDURES: [Open Ileostomy closure with small bowel resection ] RADIOLOGY: [ ] TESTING RESULTS: [ ] PENDING TESTS: [ none] FINAL DIAGNOSIS: [ High volume output Ileostomy s/p open Ileostomy closure mild postoperative anemia] POST CARE PATIENT CARE INSTRUCTIONS: [F/U in my office 24-48 hrs F?U with surgery within 2 weeks ] AMY KIM MD May 19, 2024 18:21
== END 2024-05-18 18:45 | disposition home or self-care (01) | DRG 331 ==
LOC: EDSTATUS 11:00 → DAHIP 05-16 05:56 → 4DH 05-16 14:02
PROVIDERS: ADMIT Surgery; ATTEND Surgery
PROC: 0DN80ZZ Release Small Intestine, Open Approach (ICD-10-PCS; 2024-05-16)
PROC: 0DBB0ZZ Excision of Ileum, Open Approach (ICD-10-PCS; principal; 2024-05-16 07:55)
DX: Z43.2 Encounter for attention to ileostomy (principal); D72.829 Elevated white blood cell count, unspecified; K66.0 Peritoneal adhesions (postprocedural) (postinfection); D64.89 Other specified anemias
CPT/HCPCS: 36415; 80048; 80053; 85025; 85610; 85730; 86850; 86900; 86901; 93005; A4344; A4606; G0378; J0171; J0330; J1100; J1171; J1650; J2003; J2175; J2185; J2250; J2371; J2405; J2704; J2710; J3010; J3490; J7120; A4215; A4216; A4221; A4222; A4223; A4600; A4663; A6260; J0665